=== PATIENT | male | born 1955 | race Caucasian/White ===

== ENCOUNTER → 2016-07-26 | Outpatient (CLI) | payer BC ==
[2016-07-26 09:16] LABS: CHLORIDE,CL 107 mmol/L (98-110); SODIUM,NA 142 mmol/L (136-146)
== END ==
LOC: MW.CHFP 08:30
PROVIDERS: ATTEND Emergency Medicine
DX: Z12.5 Encounter for screening for malignant neoplasm of prostate (principal); I10 Essential (primary) hypertension; E78.5 Hyperlipidemia, unspecified; R73.09 Other abnormal glucose
CPT/HCPCS: 36415; 80053; 80061; 83036; G0103

== ENCOUNTER 2021-11-10 06:13 | Emergency (ER) | payer BC, MEDICARE ==
[2021-11-10] MEDS ORDERED: Morphine 4 MG/ML VIAL IVPUSH ONE (06:35)
[2021-11-10 07:00] LABS: CARBON DIOXIDE,CO2 29.2 mmol/L (21.0-32.0); POTASSIUM,K 3.6 mmol/L (3.5-5.1)
[2021-11-10] MEDS ORDERED: HYDROmorphone 1 MG/ML Syringe IVPUSH ONE ×2 (07:37→09:56)
[2021-11-10] MEDS ORDERED: Esmolol 2,500 MG in Sodium Chloride 0.9% 250 ML IV SCH ×2 (09:00→11:15)
[2021-11-10] MEDS: STERILE WATER IV SCH ×4 (09:19→11:14)
[2021-11-10] MEDS: ESMOLOL HCL IV SCH ×4 (09:19→11:14)
[2021-11-10] MEDS ORDERED: niCARdipine/Normal Saline 20 MG/200 ML BAG IV SCH ×2 (10:15→11:15)
[2021-11-10 11:08] VITALS: BP 118/76; PULSE 55
[2021-11-10] MEDS ORDERED: Iopamidol 755 MG/ML 500 ML Multipack Bottle IVPUSH STA (11:08)
== END 2021-11-10 11:06 ==
LOC: MW.ED 06:13
DX: I71.03 Dissection of thoracoabdominal aorta (principal); R07.89 Other chest pain; I10 Essential (primary) hypertension; Z79.899 Other long term (current) drug therapy; Z20.822 Contact with and (suspected) exposure to COVID-19
CPT/HCPCS: 36415; 71045; 71275; 74174; 80053; 83735; 84484; 85025; 85610; 87635; 93005; 96365; 96366; 96368; 96375; 96376; 99285; J1170; J2270; J3490; J7050; Q9967; U0002

== ENCOUNTER 2023-10-13 20:21 | Emergency (ER) | payer MEDICARE, BC ==
[2023-10-13 21:06] LABS: BILIRUBIN,URINE NEGATIVE (NEGATIVE); COLOR,URINE YELLOW; GLUCOSE,URINE NEGATIVE (NEGATIVE); KETONES,URINE NEGATIVE (NEGATIVE); LEUKOCYTE ESTERASE,URINE SMALL (NEGATIVE); NITRITE,URINE NEGATIVE (NEGATIVE); OCCULT BLOOD,URINE TRACE-INTACT (NEGATIVE); PROTEIN,URINE NEGATIVE (NEGATIVE); UROBILINOGEN,URINE 0.2 EU/dL (<2.0)
[2023-10-13 21:07] LABS: APPEARANCE,URINE HAZY
[2023-10-13 21:08] LABS: BASOPHILS ABSOLUTE AUTO 0.02 K/uL (0.00-0.20); BASOPHILS PERCENT AUTO 0.1 % (0.0-1.0); EOSINOPHILS ABSOLUTE AUTO 0.09 K/uL (0.00-0.45); EOSINOPHILS PERCENT AUTO 0.5 % (0.0-6.0); HEMATOCRIT 35.9 % (42.0-52.0); HEMOGLOBIN 12.2 g/dL (14.0-18.0); IMMATURE GRAN ABSOLUTE AUTO 0.07 K/uL (0.00-0.05); IMMATURE GRAN PERCENT AUTO 0.4 % (0.0-0.4); LYMPHOCYTES ABSOLUTE AUTO 0.62 K/uL (1.00-4.80); LYMPHOCYTES PERCENT AUTO 3.5 % (24.0-44.0); MEAN CORPUSCULAR HEMOGLOBIN 31.6 pg (28.0-32.0); MEAN PLATELET VOLUME 10.6 fL (9.4-12.4); NEUTROPHILS ABSOLUTE AUTO 16.12 K/uL (1.80-7.70); NEUTROPHILS PERCENT AUTO 91.5 % (41.0-71.0); PLATELET COUNT,PLT 151 K/uL (150-400); RED BLOOD CELL COUNT 3.86 M/uL (4.52-5.90); WHITE BLOOD CELL COUNT,WBC 17.62 K/uL (3.9-11.3)
[2023-10-13] MEDS: Sodium Chloride 0.9% 1,000 ML IV STA ×2 (21:13→22:23)
[2023-10-13 21:22] LABS: BACTERIA,URINE FEW (NEGATIVE); EPITHELIAL CELLS,URINE RARE (NONE-FEW); RBC,URINE 0-2 (0-2/HPF)
[2023-10-13 21:31] LABS: ALBUMIN 3.5 g/dL (3.4-5.0); BILIRUBIN TOTAL 0.8 mg/dL (0.2-1.0); CALCIUM 8.5 mg/dL (8.5-10.1); CREATININE 1.9 mg/dL (0.8-1.3); EST CRCL DRUG DOSING (CG) 32.65 mL/min; POTASSIUM,K 4.3 mmol/L (3.5-5.1); PROTEIN TOTAL,TP 6.9 g/dL (6.4-8.2)
[2023-10-13 21:33] LABS: LACTIC ACID 1.6 mmol/L (0.4-2.0)
[2023-10-13] MEDS: cefTRIAXone 2 GM in Sodium Chloride 0.9% 50 ML IV STA (21:35)
[2023-10-13] MEDS: Acetaminophen 500 MG Tab PO STA (21:36)
[2023-10-13] MEDS ORDERED: Iopamidol 755 MG/ML 500 ML Multipack Bottle IVPUSH STA (21:44)
[2023-10-13] MEDS: VANCOmycin 2 GM/400 ML 2 GM in Premix Bag 1 BAG IV ONE (23:01)
[2023-10-13] MEDS ORDERED: Lactated Ringers 1,000 ML IV SCH (23:45)
[2023-10-14] MEDS: Sodium Chloride 0.9% 1,000 ML IV SCH (00:06)
[2023-10-14 03:04] VITALS: BP 107/50; PULSE 73
== END 2023-10-14 03:03 | disposition home or self-care (01) ==
LOC: MW.ED 20:21
DX: N39.0 Urinary tract infection, site not specified (principal); I12.9 Hypertensive chronic kidney disease with stage 1 through stage 4 chronic kidney disease, or unspecified chronic kidney disease; N18.9 Chronic kidney disease, unspecified; Z79.899 Other long term (current) drug therapy
CPT/HCPCS: 36415; 51798; 74176; 80053; 81001; 83605; 85025; 87040; 87086; 87088; 87186; 96361; 96365; 96366; 96367; 99284; A9270; J0696; J3372; J3490; J7030; J7050

== ENCOUNTER 2023-11-12 08:12 | Inpatient (IN) | payer MEDICARE, BC ==
[2023-11-12] MEDS: Ketorolac 30 MG/ML SDV IVPUSH ONE (08:52)
[2023-11-12] MEDS: Phenazopyridine 200 MG Tab PO ONE (08:52)
[2023-11-12] MEDS: Sodium Chloride 0.9% 500 ML IV STA (08:53)
[2023-11-12] MEDS: Sodium Chloride 0.9% 10 ML Syringe FLUSH PRN (08:54)
[2023-11-12] MEDS: Sodium Chloride 0.9% 2.5 ML Syringe FLUSH PRN (08:54)
[2023-11-12 09:02] LABS: APPEARANCE,URINE SLT CLOUDY; BILIRUBIN,URINE NEGATIVE (NEGATIVE); COLOR,URINE YELLOW; GLUCOSE,URINE NEGATIVE (NEGATIVE); KETONES,URINE TRACE mg/dL (NEGATIVE); LEUKOCYTE ESTERASE,URINE SMALL (NEGATIVE); NITRITE,URINE NEGATIVE (NEGATIVE); OCCULT BLOOD,URINE NEGATIVE (NEGATIVE); PROTEIN,URINE NEGATIVE (NEGATIVE); UROBILINOGEN,URINE 0.2 EU/dL (<2.0)
[2023-11-12 09:11] LABS: BACTERIA,URINE 1+ (NEGATIVE); EPITHELIAL CELLS,URINE RARE (NONE-FEW); MUCUS,URINE LIGHT (NONE-MOD); RBC,URINE 0-2 (0-2/HPF); WBC,URINE 50-60 (0-5/HPF)
[2023-11-12 09:23] LABS: BASOPHILS ABSOLUTE AUTO 0.02 K/uL (0.00-0.20); BASOPHILS PERCENT AUTO 0.1 % (0.0-1.0); EOSINOPHILS ABSOLUTE AUTO 0.03 K/uL (0.00-0.45); EOSINOPHILS PERCENT AUTO 0.2 % (0.0-6.0); HEMATOCRIT 37.3 % (42.0-52.0); HEMOGLOBIN 12.4 g/dL (14.0-18.0); IMMATURE GRAN ABSOLUTE AUTO 0.13 K/uL (0.00-0.05); IMMATURE GRAN PERCENT AUTO 0.7 % (0.0-0.4); LYMPHOCYTES ABSOLUTE AUTO 0.59 K/uL (1.00-4.80); LYMPHOCYTES PERCENT AUTO 3.1 % (24.0-44.0); MEAN CORPUSCULAR HEMOGLOBIN 31.1 pg (28.0-32.0); MEAN CORPUSCULAR HGB CONC 33.2 g/dL (32.0-36.0); MEAN CORPUSCULAR VOLUME 93.5 fL (83.0-99.0); MEAN PLATELET VOLUME 10.4 fL (9.4-12.4); MONOCYTES ABSOLUTE AUTO 1.18 K/uL (0.00-0.80); MONOCYTES PERCENT AUTO 6.2 % (0.0-8.0); NEUTROPHILS ABSOLUTE AUTO 17.13 K/uL (1.80-7.70); NEUTROPHILS PERCENT AUTO 89.7 % (41.0-71.0); PLATELET COUNT,PLT 144 K/uL (150-400); RED BLOOD CELL COUNT 3.99 M/uL (4.52-5.90); WHITE BLOOD CELL COUNT,WBC 19.08 K/uL (3.9-11.3)
[2023-11-12] MEDS: cefTRIAXone 1 GM in Sodium Chloride 0.9% 50 ML IV ONE (09:31)
[2023-11-12 09:40] LABS: CORONAVIRUS COVID-19 NAA NEGATIVE (NEGATIVE); INFLUENZA A NAA NEGATIVE (NEGATIVE); INFLUENZA B NAA NEGATIVE (NEGATIVE)
[2023-11-12 09:42] LABS: A/G RATIO 0.9 (0.9-1.6); ALBUMIN 3.5 g/dL (3.4-5.0); BILIRUBIN TOTAL 1.8 mg/dL (0.2-1.0); CARBON DIOXIDE,CO2 25.2 mmol/L (21.0-32.0); CREATININE 1.9 mg/dL (0.8-1.3); EST CRCL DRUG DOSING (CG) 32.65 mL/min; POTASSIUM,K 4.5 mmol/L (3.5-5.1); PROTEIN TOTAL,TP 7.4 g/dL (6.4-8.2)
[2023-11-12 09:45] LABS: LACTIC ACID 1.8 mmol/L (0.4-2.0)
[2023-11-12] MEDS ORDERED: Ketorolac 30 MG/ML SDV IM PRN (13:11)
[2023-11-12] MEDS ORDERED: Acetaminophen 650 MG Supp RECTAL PRN (13:11)
[2023-11-12] MEDS ORDERED: Polyethylene Glycol 3350 Powder 17 GM Packet PO PRN (13:11)
[2023-11-12] MEDS ORDERED: Ondansetron 4 MG/2 ML SDV IVPUSH PRN (13:11)
[2023-11-12] MEDS ORDERED: Sodium Chloride 0.9% 1,000 ML IV SCH (13:15)
[2023-11-12] MEDS: Sodium Chloride 0.9% 1,000 ML IV SCH (13:27)
[2023-11-12] MEDS: cefTRIAXone 1 GM in Sodium Chloride 0.9% 50 ML IV STA (13:43)
[2023-11-12] MEDS: Iopamidol 755 MG/ML 500 ML Multipack Bottle IVPUSH ONE (15:54)
[2023-11-12] MEDS: Sodium Chloride 0.9% 1,000 ML IV ONE (18:20)
[2023-11-12] MEDS: Acetaminophen 325 MG Tab PO PRN (20:38)
[2023-11-12] MEDS: atorvaSTATin 10 MG Tab PO SCH (20:38)
[2023-11-12] MEDS ORDERED: Morphine 2 MG/ML SYRINGE IVPUSH PRN (22:04)
[2023-11-12] MEDS ORDERED: Naloxone 0.4 MG/ML SDV IVPUSH PRN (22:04)
[2023-11-13] MEDS: Sodium Chloride 0.9% 1,000 ML IV SCH (04:54)
[2023-11-13 05:36] LABS: HEMATOCRIT 32.4 % (42.0-52.0); MEAN CORPUSCULAR HEMOGLOBIN 31.6 pg (28.0-32.0); MEAN CORPUSCULAR VOLUME 93.1 fL (83.0-99.0); MEAN PLATELET VOLUME 10.7 fL (9.4-12.4); PLATELET COUNT,PLT 137 K/uL (150-400); RED BLOOD CELL COUNT 3.48 M/uL (4.52-5.90)
[2023-11-13 05:52] LABS: CALCIUM 8.1 mg/dL (8.5-10.1); CREATININE 1.3 mg/dL (0.8-1.3); EST CRCL DRUG DOSING (CG) 45.99 mL/min; MAGNESIUM 1.8 mg/dL (1.8-2.4); POTASSIUM,K 4.1 mmol/L (3.5-5.1)
[2023-11-13 06:03] LABS: EOSINOPHILS ABSOLUTE MAN 0.32 K/uL (0.00-0.45); EOSINOPHILS PERCENT MAN 2 % (0-6); LYMPHOCYTES ABSOLUTE MAN 1.28 K/uL (1.00-4.80); LYMPHOCYTES PERCENT MAN 8 % (24-44); MONOCYTES ABSOLUTE MAN 1.28 K/uL (0.00-0.80); MONOCYTES PERCENT MAN 8 % (0-8); SEG NEUTROPHILS ABSOLUTE MAN 13.12 K/uL (1.80-7.70); SEG NEUTROPHILS PERCENT MAN 82 % (41-71)
[2023-11-13] MEDS: cefTRIAXone 2 GM in Sodium Chloride 0.9% 50 ML IV SCH (09:18)
[2023-11-13] MEDS: Metoprolol Succinate 50 MG Tab.ER PO SCH (09:18)
[2023-11-13] MEDS ORDERED: Sodium Chloride 0.9% 10 ML Syringe FLUSH PRN (10:04)
[2023-11-13] MEDS ORDERED: Sodium Chloride 0.9% 2.5 ML Syringe FLUSH PRN (10:04)
[2023-11-13] MEDS: Melatonin 3 MG Tab PO PRN (21:16)
[2023-11-14] MEDS: Phenazopyridine 200 MG Tab PO PRN (04:43)
[2023-11-14 05:46] LABS: BASOPHILS ABSOLUTE AUTO 0.04 K/uL (0.00-0.20); BASOPHILS PERCENT AUTO 0.4 % (0.0-1.0); EOSINOPHILS ABSOLUTE AUTO 0.35 K/uL (0.00-0.45); EOSINOPHILS PERCENT AUTO 3.6 % (0.0-6.0); HEMATOCRIT 34.6 % (42.0-52.0); HEMOGLOBIN 11.5 g/dL (14.0-18.0); IMMATURE GRAN ABSOLUTE AUTO 0.05 K/uL (0.00-0.05); IMMATURE GRAN PERCENT AUTO 0.5 % (0.0-0.4); LYMPHOCYTES ABSOLUTE AUTO 1.29 K/uL (1.00-4.80); LYMPHOCYTES PERCENT AUTO 13.1 % (24.0-44.0); MEAN CORPUSCULAR HGB CONC 33.2 g/dL (32.0-36.0); MEAN CORPUSCULAR VOLUME 93.3 fL (83.0-99.0); MEAN PLATELET VOLUME 10.4 fL (9.4-12.4); MONOCYTES ABSOLUTE AUTO 0.82 K/uL (0.00-0.80); MONOCYTES PERCENT AUTO 8.4 % (0.0-8.0); NEUTROPHILS ABSOLUTE AUTO 7.27 K/uL (1.80-7.70); PLATELET COUNT,PLT 141 K/uL (150-400); RED BLOOD CELL COUNT 3.71 M/uL (4.52-5.90); WHITE BLOOD CELL COUNT,WBC 9.82 K/uL (3.9-11.3)
[2023-11-14 06:03] LABS: CALCIUM 8.4 mg/dL (8.5-10.1); CARBON DIOXIDE,CO2 25.2 mmol/L (21.0-32.0); CREATININE 1.2 mg/dL (0.8-1.3); EST CRCL DRUG DOSING (CG) 49.83 mL/min; POTASSIUM,K 4.1 mmol/L (3.5-5.1)
[2023-11-14] MEDS: Carvedilol 25 MG Tab PO SCH (08:22)
[2023-11-15 05:39] LABS: BASOPHILS ABSOLUTE AUTO 0.04 K/uL (0.00-0.20); BASOPHILS PERCENT AUTO 0.5 % (0.0-1.0); EOSINOPHILS ABSOLUTE AUTO 0.44 K/uL (0.00-0.45); EOSINOPHILS PERCENT AUTO 5.4 % (0.0-6.0); HEMATOCRIT 36.5 % (42.0-52.0); HEMOGLOBIN 12.1 g/dL (14.0-18.0); IMMATURE GRAN ABSOLUTE AUTO 0.06 K/uL (0.00-0.05); IMMATURE GRAN PERCENT AUTO 0.7 % (0.0-0.4); LYMPHOCYTES ABSOLUTE AUTO 1.34 K/uL (1.00-4.80); LYMPHOCYTES PERCENT AUTO 16.4 % (24.0-44.0); MEAN CORPUSCULAR HEMOGLOBIN 30.8 pg (28.0-32.0); MEAN CORPUSCULAR HGB CONC 33.2 g/dL (32.0-36.0); MEAN CORPUSCULAR VOLUME 92.9 fL (83.0-99.0); MEAN PLATELET VOLUME 10.5 fL (9.4-12.4); MONOCYTES ABSOLUTE AUTO 0.76 K/uL (0.00-0.80); MONOCYTES PERCENT AUTO 9.3 % (0.0-8.0); NEUTROPHILS ABSOLUTE AUTO 5.55 K/uL (1.80-7.70); NEUTROPHILS PERCENT AUTO 67.7 % (41.0-71.0); PLATELET COUNT,PLT 155 K/uL (150-400); RED BLOOD CELL COUNT 3.93 M/uL (4.52-5.90); WHITE BLOOD CELL COUNT,WBC 8.19 K/uL (3.9-11.3)
[2023-11-15 06:02] LABS: CALCIUM 8.7 mg/dL (8.5-10.1); CARBON DIOXIDE,CO2 27.1 mmol/L (21.0-32.0); CREATININE 1.2 mg/dL (0.8-1.3); EST CRCL DRUG DOSING (CG) 49.83 mL/min; POTASSIUM,K 4.1 mmol/L (3.5-5.1)
[2023-11-16 05:58] LABS: BASOPHILS ABSOLUTE AUTO 0.04 K/uL (0.00-0.20); BASOPHILS PERCENT AUTO 0.5 % (0.0-1.0); EOSINOPHILS PERCENT AUTO 4.8 % (0.0-6.0); HEMATOCRIT 36.9 % (42.0-52.0); HEMOGLOBIN 12.5 g/dL (14.0-18.0); IMMATURE GRAN ABSOLUTE AUTO 0.09 K/uL (0.00-0.05); IMMATURE GRAN PERCENT AUTO 1.1 % (0.0-0.4); LYMPHOCYTES ABSOLUTE AUTO 1.41 K/uL (1.00-4.80); LYMPHOCYTES PERCENT AUTO 16.9 % (24.0-44.0); MEAN CORPUSCULAR HEMOGLOBIN 31.3 pg (28.0-32.0); MEAN CORPUSCULAR HGB CONC 33.9 g/dL (32.0-36.0); MEAN CORPUSCULAR VOLUME 92.5 fL (83.0-99.0); MEAN PLATELET VOLUME 10.2 fL (9.4-12.4); MONOCYTES ABSOLUTE AUTO 0.87 K/uL (0.00-0.80); MONOCYTES PERCENT AUTO 10.4 % (0.0-8.0); NEUTROPHILS ABSOLUTE AUTO 5.54 K/uL (1.80-7.70); NEUTROPHILS PERCENT AUTO 66.3 % (41.0-71.0); PLATELET COUNT,PLT 180 K/uL (150-400); RED BLOOD CELL COUNT 3.99 M/uL (4.52-5.90); WHITE BLOOD CELL COUNT,WBC 8.35 K/uL (3.9-11.3)
[2023-11-16 06:29] LABS: CALCIUM 8.9 mg/dL (8.5-10.1); CREATININE 1.2 mg/dL (0.8-1.3); EST CRCL DRUG DOSING (CG) 49.83 mL/min; POTASSIUM,K 4.1 mmol/L (3.5-5.1)
[2023-11-16 11:54] VITALS: BP 140/71; PULSE 65
== END 2023-11-16 15:10 | disposition home or self-care (01) | DRG 690 ==
LOC: MW.ED 08:12 → MW.MS 13:03
PROVIDERS: ADMIT Family Medicine; ATTEND Family Medicine
DX: R30.0 Dysuria (principal); N10 Acute pyelonephritis; Z16.23 Resistance to quinolones and fluoroquinolones; N20.0 Calculus of kidney; N17.9 Acute kidney failure, unspecified; I12.9 Hypertensive chronic kidney disease with stage 1 through stage 4 chronic kidney disease, or unspecified chronic kidney disease; N18.9 Chronic kidney disease, unspecified; G47.33 Obstructive sleep apnea (adult) (pediatric); D64.9 Anemia, unspecified; E78.5 Hyperlipidemia, unspecified; B96.20 Unspecified Escherichia coli [E. coli] as the cause of diseases classified elsewhere; Z79.899 Other long term (current) drug therapy; Z87.81 Personal history of (healed) traumatic fracture
CPT/HCPCS: 0240U; 36415; 74176; 74177; 80048; 80053; 81001; 83605; 83735; 85025; 87040; 87086; 87088; 87186; 96361; 96365; 96375; 99285; 99222; 99231; 99232; 99238; 99284; A9270-GY; J0696; J1885; J3490; J7030; J7040; Q9967